=== PATIENT | male | born 1935 | race Caucasian/White ===

== ENCOUNTER 2016-11-30 15:13 | Inpatient (IN) | payer MEDICARE, OTHER ==
[~2016-11-30] VITALS: Ht 180.3 cm; Wt 93.7 kg
[~2016-11-30 15:13] MED LIST: ASPI-973 PO; CARV25TA2 PO; CREST10T PO; DOCU-41 PO; DOXY100T2 PO; FAMC500T18 PO; INSU100V7 SUBQ; LISI30TA5 PO; METF500T4 PO; NOV100I SUBQ; RUTI1TAB PO; SPIR25TA PO; UBID100C25 PO
[2016-11-30] MEDS ORDERED: [UNRECOGNIZED DRUG - OTHER] XX ONE (18:44)
[2016-11-30 19:17] LABS: APPEARANCE,URINE CLEAR (CLEAR,HAZY); COLOR,URINE YELLOW (YELLOW); OCCULT BLOOD,URINE NEGATIVE (NEGATIVE); PH,URINE 5.5 (5.0-8.0); UROBILINOGEN,URINE NORMAL (NORMAL)
[2016-11-30 19:23] VITALS: BP 154/73; PULSE 70; RESP 16; O2SAT 95
--- NOTE | 2016-11-30 19:29 | NUR ---
Admit: Patient arrived to [facility] at 1820. Pt A&O X3 and able to ambulate from stretcher to bed with SBA. Tele: AV paced 60's. Amiodarone gtt infusing at 1mg/min (33.3mL/hr). VSS. Report given to JEANMARIE MARSHALL.
[2016-11-30] MEDS ORDERED: Ondansetron 2 mg/mL 2 mL Inj IVPUSH PRN (19:45)
[2016-11-30] MEDS ORDERED: Alum-Mag Hydrox-Simeth 30 mL Suspension PO PRN (19:45)
[2016-11-30] MEDS ORDERED: Polyethylene Glycol (PEG) 17 Gm Powder PO PRN (19:45)
[2016-11-30 20:24] VITALS: BP 153/75; PULSE 64; RESP 20; O2SAT 93
[2016-11-30] MEDS ORDERED: Insulin Human NPH-Reg 70-30 100 Unit/mL 10 ML Mdv SUBQ SCH (20:25)
--- NOTE | 2016-11-30 20:33 | PCM.HPMED ---
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 His AICD discharged 4 times, each about 15 seconds apart around 12:45 PM while doing yard work. He stopped doing yardwork and defibrillator has not fired since. He notes only uncomfortability from the jolt of the AICD. The last time his AICD discharged was over a year ago. He was asymptomatic prior to it going off without any chest pain, palpitations, dizziness, headache, shortness of breath. He also denies fevers, chills, nausea, vomiting, abdominal pain, diarrhea. He does note he is scheduled for a cardiac ablation for ventricular tachycardia on 12/11/[address] Woodward. Per report from [facility], His AICD was interrogated by [facility] which showed total episodes of slow V. tach and multiple episodes of pacing which converted him however on his final occurrences rate went above 169 which required for defibrillation to between 30 and 36J for successful cardioversion. This was discussed with Dr. Kothari who recommended amiodarone drip and transfer to [facility]. Labs from [facility]: WBC 11.1, Hgb 14.7, HCT 45.3, platelets 200, Sodium 145, potassium 4.7, chloride 106, CO2 23, BUN 22, creatinine 1.3, glucose 185, calcium 9.5, magnesium 1.8, AST 29, ALT 48 , alkaline phosphatase 58, total CK 69, troponin I 0.012, , amylase 87, lipase 35, PT 10.9, INR 1.0, APTT 27. Chest X-ray with no acute pulmonary process. Rhythm strip from [facility] shows multiform PVCs with a pulse of 53. Urine dip without ketones, nitrites or leukocytes. Review of Systems: A comprehensive review of systems was conducted with the patient and found to be negative except as above in the History of Present Illness. Allergies Coded Allergies: amoxicillin (Verified Adverse Reaction, Intermediate, diarrhea, 01/29/15) Home Medications Per [facility] 06/10/2016 amiodarone 200 mg tablet 1 tab daily buttermaker helper. 03/16/2015 Aspir-81 81 mg tablet,delayed release take 1 tablet by oral route every day 03/16/2015 Crestor 10 mg tablet take 1 tablet by oral route every day 04/08/2016 furosemide 20 mg tablet take 1 tablet by oral route every day GLUCOSAMINE-CHONDROITIN 2 daily by mouth Lantus 100 unit/mL subcutaneous solution inject by subcutaneous route 25-40 units on sliding scale three times daily as per insulin protocol lisinopril 20 mg tablet take 2 tablet by oral route every day metformin 500 mg tablet take 2 tablets by oral route 2 times every day with morning and evening meals 09/08/2015 metoprolol succinate ER 50 mg tablet,extended release 24 hr take 1 tablet by oral route 2 times every day Novolog 100 unit/mL subcutaneous solution inject by subcutaneous route per prescriber's instructions. Insulin dosing requires individualization. Osteo Bi-Flex 250 mg-200 mg tablet take 2 tablets daily PMH Hemorrhagic pancreatitis with pseudocyst HTN DM 2/2 Partial pancreatectomy Animal wound infxn Splenectomy Cholecystectomy CAD s/p stent RCA SysCHF Surgical History Partial pancreatectomy Splenectomy Cholecystectomy CAD s/p stent RCA Family History Father- PNA (d.) Mother- Leukemia (d.) Siblings- 1 Unknown CA (d.); 2 A&W Social History Hx Alcohol Use: No Hx Substance Use: No Hx Tobacco Use: Yes Smoking Status: Former Smoker Exam Vital Signs Vital Signs (First) Date Time Temp Pulse Resp B/P Pulse Ox O2 Delivery O2 Flow Rate FiO2 11/30/16 19:23 36.8 70 16 154/73 95 Room Air Exam General: No acute distress, well-developed, well-nourished, appropriately interactive HEENT: Normocephalic, atraumatic. External ears without defect. Pupils equal, round. Anicteric sclerae, moist conjunctivae. Neck: Supple with full range of motion. No jugular venous distension. No bruits. No lymphadenopathy or thyromegaly. Cardiovascular: Regular rate and rhythm with no murmurs, rubs, or gallops appreciated Pulmonary: Clear to auscultation bilaterally with no crackles, wheezes, or rhonchi. Normal respiratory effort with no use of accessory muscles. Abdomen: Bowel tones present. Soft, nontender, nondistended. Extremities: No clubbing, cyanosis, edema, or lymphadenopathy appreciated. Skin: Normal temperature, turgor, and texture; no rash, ulcers, or subcutaneous nodules appreciated. Neurological: Cranial nerves grossly intact. Normal muscle strength, tone, and bulk. Reflexes, coordination, and sensory function within normal limits. No known gait impairment. Psychiatric: Normal mood and affect. Alert and oriented to person, place, and time. Lab and Diagnostics Labs Labs from [facility]: WBC 11.1, Hgb 14.7, HCT 45.3, platelets 200, Sodium 145, potassium 4.7, chloride 106, CO2 23, BUN 22, creatinine 1.3, glucose 185, calcium 9.5, magnesium 1.8, AST 29, ALT 48, alkaline phosphatase 58, total CK 69 , troponin I 0.012, , amylase 87, lipase 35, PT 10.9, INR 1.0, APTT 27. X-Rays, CTs and MRIs Chest x-ray from [facility] 11/30/16: No acute pulmonary process. 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 Interrogation, this occured, secondary to ventricular tachycardia with HR 169. Patient had AICD placed in 2014 for sustained ventricular tachycardia. Per last cardiology report in [facility] in October, he has had 62 episodes of ventricular tachycardia in about 1 month. He was originally scheduled for cardiac ablation on 12/11/[address] Woodward. - Amiodarone drip per Dr. Kothari, Cardiology will see tomorrow - Trop WNL at [facility]. Will repeat - Monitor on Tele - CBC, CMP in AM - TSH, Magnesium, troponin now - NPO after midnight Diabetes Mellitus, insulin dependent, s/p partial pancreatectomy, Present on Admission, Active Last A1c 6.9 per patient, 1.5 weeks ago. Typical regimen is Lantus 25 mg BID, Novolog sliding scale with meals and metformin. Insulin and metformin used to control. Please work with pt, as he has a tailored regimen for his unique situation of partial pancreatectomy. - Novolog High dose scale TID with meals - Lantus 20 units BID, Will given 10 units tonight as patient NPO after midnight - Hold Metformin - Low dose lispro sliding scale Hypertension, present on admission, active - Continue home Metoprolol Succinate 50 mg BID - Continue home Furosemide 20 mg qAM Hyperlipidemia, managed. - Continue Crestor 10 mg daily CAD s/p stent, 2000. - Continue home metoprolol, aspirin Acetaminophen for mild pain when necessary. Bowel regimen Senna and MiraLAX scheduled and PRN. Zofran when necessary for nausea and vomiting. SubQ heparin, SCDs in place. CODE Status: Full Code Patient Status: Patient is admitted under observation status with expected length of stay less than 2 midnights due to severity of presenting symptoms, risk of adverse event, and complexity of treatment plan. VTE Prophylaxis: Sub-Q Heparin (Unfractionated) VTE Mechanical Devices: Intermittant Pneumatic CD Resuscitation Status: CPR: Attempt Resuscitation Attending Statement The patient was seen and examined together with Dr. Escalante on 11/30 and I agree with the history, exam and plan as outlined in the note above. Sahil Escalante DO Nov 30, 2016 19:12 Sahil Wei MD Dec 01, 2016 02:37
[2016-11-30 21:24] VITALS: BP 136/82; PULSE 60; RESP 24; O2SAT 92
[2016-11-30] MEDS ORDERED: Glucose 40% Oral Gel 15 Gm Tube PO PRN (21:25)
[2016-11-30] MEDS: MeTOProlol XL 50 mg ER24 Tablet PO SCH (21:25)
[2016-11-30] MEDS: Amiodarone 360 mg/200 mL D5W 360 MG, Filter, Taxol 14256-28 1 EACH in IV Premix 1 EACH IV SCH (21:42)
[2016-11-30] MEDS: Insulin LISPRO 300 Unit/3 mL Inj SUBQ SCH (22:00)
[2016-11-30] MEDS ORDERED: Insulin GLARgine 100 Unit/mL Syringe SUBQ ONE (22:00)
[2016-11-30 22:35] LABS: TROPONIN T 0.01 ug/L (0.0-0.011)
[2016-11-30 22:45] LABS: Magnesium 1.8 mg/dL (1.6-2.6)
[2016-11-30 23:09] VITALS: BP 136/70; PULSE 67; RESP 21; O2SAT 93
[2016-11-30] MEDS: Heparin 5,000 Unit/mL Inj SUBQ SCH (23:55)
[2016-12-01] VITALS (10 sets, daily range): BP systolic 125–143; BP diastolic 63–85; PULSE 60–71; RESP 19–25; O2SAT 92–97
[2016-12-01] MEDS ORDERED: Amiodarone 360 mg/200 mL D5W Premix IV ONE ×2 (02:24→15:19)
[2016-12-01] MEDS ORDERED: IV Premix 1 EACH IV ONE ×2 (02:24→15:19)
[2016-12-01] MEDS: Amiodarone 360 mg/200 mL D5W 360 MG, Filter, Taxol 14256-28 1 EACH in IV Premix 1 EACH IV SCH ×2 (02:30→15:28)
[2016-12-01 03:54] LABS: BASOPHILS % (AUTO) 0.2 % (0-3); EOSINOPHILS % (AUTO) 2.2 % (0-5); MONOCYTES % (AUTO) 12.5 % (4-12); Mean Corpuscular Hemoglobin 30.4 pg (27.0-35.0); Mean Corpuscular Volume 94.2 fL (81-100); NEUTROPHILS % (AUTO) 64.1 % (40-74); Platelet Count 207 bil/L (150-400)
--- NOTE | 2016-12-01 05:54 | NUR ---
Cardiac Frequent PVCs but no runs of Vtach and no defibrillator shocks overnight. Amiodarone infusion continues at 0.5mg/min. Patient slept intermittently, slept in room. BGs 88, 127, 118 overnight, no insulin coverage. Plan for cardiology consult today.
[2016-12-01] MEDS: Insulin LISPRO 300 Unit/3 mL Inj SUBQ SCH ×4 (08:00→21:03)
[2016-12-01] MEDS: Insulin GLARgine 100 Unit/mL Syringe SUBQ SCH ×2 (08:30→21:03)
[2016-12-01] MEDS: Heparin 5,000 Unit/mL Inj SUBQ SCH ×2 (08:59→18:02)
[2016-12-01] MEDS: MeTOProlol XL 50 mg ER24 Tablet PO SCH ×2 (08:59→21:04)
--- NOTE | 2016-12-01 11:22 | PCM.PNMED ---
Subjective Date of Service Dec 01, 2016 Subjective Today that patient states that he feels well, he has not had any discharge of his AICD since admission, and he denies chest pain, palpitations, nausea, vomiting, or diarrhea. No significant overnight events. Exam Vital Signs Vital Sign - Last Date Time Temp Pulse Resp B/P Pulse Ox O2 Delivery O2 Flow Rate FiO2 12/01/16 08:48 36.7 67 21 139/75 93 Room Air Intake and Output 11/30/16 11/30/16 12/01/16 Cumulative From/Thru 14:59 22:59 06:59 11/30/16 19:23 - 12/01/16 06:43 Intake Total 307 ml 307 ml Balance 307 ml 307 ml IV Total 307 ml 307 ml Exam Gen: A/O x3 pleasant cooperative man in NAD Neck: Supple, non tender, no JVD HEENT: PERRL, EOMI, no scleral icterus CV: RRR, no murmurs rubs or gallops, no tenderness to pacer site Resp: Lungs CTA BL no wheezing rales or rhonchi Abd: Soft, non tender, no rebound masses or guarding Extr: No clubbing cyanosis or edema Neuro: CN 2-12 grossly intact, no focal neurologic deficit Psych: Pleasant and appropriate mood and affect. IVs and Medications Medications Reviewed: Medications were reviewed in detail Lab and Diagnostics Item Value Date Time Red Blood Count 4.47 mil/mm3 12/01/16334 Mean Corpuscular Volume 94.2 fL 12/01/16334 Mean Corpuscular Hemoglobin 30.4 pg 12/01/16334 Mean Corpuscular Hemoglobin Concent 32.3 % 12/01/16334 Red Cell Distribution Width 16.6 % H 12/01/16 033 Neutrophils (%) (Auto) 64.1 % 12/01/16 033 Lymphocytes (%) (Auto) 20.7 % 12/01/16 033 Monocytes (%) (Auto) 12.5 % H 12/01/16334 Eosinophils (%) (Auto) 2.2 % 12/01/16334 Basophils (%) (Auto) 0.2 % 12/01/16334 Estimat Glomerular Filtration Rate 72 mL/min 12/01/16334 Calcium Level 9.0 mg/dL 12/01/16334 Total Bilirubin 0.3 mg/dL 12/01/16 033 Aspartate Amino Transf (AST/SGOT) 18 U/L 12/01/16 033 Alanine Aminotransferase (ALT/SGPT) 22 U/L 12/01/16 033 Alkaline Phosphatase 53 U/L 12/01/16 033 Total Protein 6.4 g/dL 12/01/16 033 Albumin 3.8 g/dL 12/01/16334 Triglycerides Level 68 mg/dL 12/01/16334 Cholesterol Level 130 mg/dL 12/01/16334 LDL Cholesterol, Calculated 57.400 mg/dL 12/01/16334 VLDL Cholesterol 13.600 mg/dL 12/01/16334 HDL Cholesterol 59 mg/dL 12/01/16334 Cholesterol/HDL Ratio 2.20 12/01/16334 Result Diagram: 12/01/1633412/01/16334 X-Rays, CTs and MRIs Chest x-ray from [facility] 11/30/16: No acute pulmonary process. 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 Interrogation, this occurred, secondary to ventricular tachycardia with HR 169. Patient had AICD placed in 2014 for sustained ventricular tachycardia. Per last cardiology report in [facility] in October, he has had 62 episodes of ventricular tachycardia in about 1 month. He was originally scheduled for cardiac ablation on 12/11/[address] Woodward. - Amiodarone drip per Dr. Kothari - Trop WNL at [facility]. Repeat unremarkable - Monitor on Tele - CBC, CMP in AM - Heart Healthy diet - Will maintain on Amiodarone drip until tomorrow, will have the patient evaluated by Dr. Woodward at that time Diabetes Mellitus, insulin dependent, s/p partial pancreatectomy, Present on Admission, Active Last A1c 6.9 per patient, 1.5 weeks ago. Typical regimen is Lantus 25 mg BID, Novolog sliding scale with meals and metformin. Insulin and metformin used to control. Please work with pt, as he has a tailored regimen for his unique situation of partial pancreatectomy. - Novolog High dose scale TID with meals - Lantus 20 units BID, Will given 10 units tonight as patient NPO after midnight - Hold Metformin - Low dose lispro sliding scale Hypertension, present on admission, active - Continue home Metoprolol Succinate 50 mg BID - Continue home Furosemide 20 mg qAM Hyperlipidemia, managed. - Continue Crestor 10 mg daily CAD s/p stent, 2000. - Continue home metoprolol, aspirin Disposition: Patient will undergo evaluation for Vtach by Dr. Woodward tomorrow, cardiology will dictate course of care and likely date of discharge; most likely 2-3 days. Pain Evaluation: Adequate Pain Control VTE Prophylaxis: Sub-Q Heparin (Unfractionated) VTE Mechanical Devices: Intermittant Pneumatic CD Resuscitation Status: CPR: Attempt Resuscitation Attending Statement The patient was seen and examined together with Dr. Perez on 12/01/16 and I agree with the history, exam and plan as outlined in the note above. Karri Perez DO Dec 01, 2016 11:22 Toy Barba Dec 01, 2016 16:40
--- NOTE | 2016-12-01 11:41 | CONS ---
[address] [address] CONSULTATION REPORT PATIENT: DARLENE LIRIANO : 1935 MR#: [id number] ADMIT: 11/30/2016 JOB ID: [id number] DATE OF SERVICE: 12/01/2016 HISTORY OF PRESENT ILLNESS: I have been asked by the hospitalist to see the patient for assistance and management and evaluation of recurrent VT and ICD shocks. The patient was doing some yardwork early yesterday afternoon when he experienced four serial ICD discharges. He stopped his yardwork and presented to the emergency department at [facility] for evaluation. ICD interrogation at that time showed episode of monomorphic VT with failure to pace terminate and subsequent serial ICD shocks with subsequent establishment of normal sinus rhythm. He was unaware of any symptoms of palpitations, dyspnea, lightheadedness, or any anginal chest discomfort at that time. This gentleman has a long history of recurrent ventricular tachycardia related to previous inferior myocardial infarction and over the past couple of years has had recurrent nonsustained monomorphic VT and recurrent pace terminated VT. He was started up on amiodarone therapy in October of last year having received several shocks for rapid monomorphic VT and subsequently his ventricular tachycardia heart rate has been markedly reduced into the 120-130 range. This is compared with 200 to 230 beats per minute prior to amiodarone. Though the frequency of his ventricular tachycardia appears to be gradually increasing particularly over the past three months or so. He has been followed in our office recently by Dr. Woodward who has him scheduled for a ventricular tachycardia ablation procedure in about 10 days. The patient's cardiac history dates back to an inferior myocardial infarction in 2000 initially treated with thrombolytic therapy followed 24 hours later by angiography and angioplasty and stenting to an occluded mid-RCA. He has done well since that time without recurrent anginal symptoms or evidence of symptomatic pulmonary congestion related to chronic moderate left ventricular systolic dysfunction. He presented with rapid monomorphic ventricular tachycardia in January 2015. Coronary angiography was performed at that time demonstrating patent stent to the mid RCA. He did have evidence of severe tubular disease involving the distal RCA before the PDA in addition to moderate disease involving the LAD, the left circumflex, and mild distal left main stenosis. He was not felt to have symptomatic ischemic heart disease and therefore underwent ICD placement with a dual-chamber device. Again following his presentation with ICD shocks in October 2015 he has been treated with amiodarone. Over that period of time he has developed fairly prominent gait imbalance likely related to or contributed to by his amiodarone therapy. In addition to being aware of progressively severe symptomatic exertional dyspnea over the past six months without anginal symptoms. He denies any nocturnal pulmonary congestion. He has had no episodes of syncope. PAST MEDICAL HISTORY: Otherwise remarkable for presentation with hemorrhagic pancreatitis in 2003 leading to subtotal pancreatectomy with secondary diabetes ever since. He underwent diagnostic coronary angiography at that time, due to evidence of significant ventricular dysfunction without significant findings and his ventricular dysfunction improved as his symptomatic acute pancreatitis gradually resolved. He has a history of chronic hypertension in addition. OUTPATIENT MEDICATIONS: Prior to admission included: 1. Amiodarone 200 mg daily. 2. Aspirin 81 mg daily. 3. Crestor 10 mg daily. 4. Furosemide 20 mg daily. 5. Lisinopril 40 mg daily. 6. Metoprolol succinate 50 mg twice daily. In addition to his current diabetic medications. ALLERGIES: AMOXICILLIN. REVIEW OF SYSTEMS: Otherwise unremarkable with the exception of his gait imbalance and absence of angina or nocturnal pulmonary congestion. He denies cough or sputum production or wheezing. PHYSICAL EXAMINATION: A very pleasant 80-year-old gentleman who is 5 feet 11 inches, and 210 pounds with a body mass index of 29. Blood pressures have been mild to moderately elevated ranging from 125-150 systolic. Heart rates in the 60-70 range with predominantly atrial pacing. O2 room air saturation 93%. He has been afebrile. HEENT examination is unremarkable. Jugular venous pressure is moderately increased with prominent A-waves in his jugular venous pulse, which is visible just below the angle of the jaw with the patient at 45 degrees. Lung armstrong are clear without rales or wheezes or rhonchi. Cardiac auscultation reveals a regular rate, a single S2, and a soft murmur of mitral insufficiency at the apex. Abdomen is soft and nontender, no palpable organomegaly, somewhat protuberant. Distal extremities are warm and well perfused. Distal pedal pulses are faintly palpable. No significant lower extremity edema. No other significant exam findings noted. LABORATORY DATA: Notable for normal electrolytes. Blood sugars well controlled. Troponin level is negative. Lipid profile was excellent. His thyroid function is normal. Chest x-ray shows moderate cardiomegaly with clear lung armstrong. IMPRESSION: 1. Recurrent monomorphic ventricular tachycardia with implantable cardioverter defibrillator discharges: This patient has stabilized on intravenous amiodarone for the time being. Given his history of progressive exertional dyspnea I am going to repeat an echocardiogram today to evaluate global left ventricular function and his mitral insufficiency. Ultimately I think repeat coronary angiography is likely going to be necessary and probably should be conducted on this admission prior to his ablation procedure in case there is an obvious ischemic trigger. I would be tempted to go ahead and proceed with angioplasty and stenting to the distal right coronary artery if there is any suspicion that ischemia in addition to scar contributes to his recurrent monomorphic ventricular tachycardia. 2. Remote inferior myocardial infarction with mild to moderate left ventricular systolic dysfunction. Ejection fraction on his most recent echocardiogram 40% with obvious inferior scar. 3. Chronic moderate mitral regurgitation. 4. Progressive exertional dyspnea. Etiology yet to be determined. Unlikely to be related to amiodarone pulmonary toxicity and possibility includes progressive ventricular dysfunction or progressive myocardial ischemia. 5. Hypertension somewhat suboptimally controlled. 6. History of diabetes secondary to a subtotal pancreatectomy well controlled. I appreciate the opportunity of seeing the patient. I will ask my associate to follow up tomorrow and will ask Dr. Woodward to see the patient in consultation tomorrow as well for his advice and input.
--- NOTE | 2016-12-01 12:34 | NUR ---
Social Work: Assessment D&A: Please see initial assessment. DYNAMOMETER MECHANIC reviewed EMR, which states pt is at [facility] with Yimi tolentino. Pt's primary insurance is Medicare, with a [employer] supp. Pt's PCP is Sergio Colon MD. Pt's readmit score has not yet been assessed. DYNAMOMETER MECHANIC met with pt at pt's bedside and explained DYNAMOMETER MECHANIC role. Pt reports that he lives at home with his ; the home is one level and there are three external steps. Pt's Anu Hopper is his designated medicare contact specialist and DPOA; SW encouraged pt to bring PPW confirming the latter designation as well as copies of his advanced directive to [facility] for scanning. Pt reports that he boss sot use any equipment to ambulate. at baseline, he drives his own car. Pt does not endorse a hx of SNF admission or H.H. Pt does not utilize any community services, nor does he have a employment case manager. Pt does not anticipate any SW needs at d/c. P: Pt likely to d/c home with no needs via POV; DYNAMOMETER MECHANIC team will continue to follow. PHANI Lino Addendum: 12/01/16 at 1240 by ALBA MENDENHALL Amended: Links added.
[2016-12-01] MEDS ORDERED: Dextrose 10% 250 ML IV PRN (14:05)
--- NOTE | 2016-12-01 16:18 | DRSVH ---
[facility] [address] [place] [address] Echocardiogram Report Name: DARLEEN LIRIANO Study Date: 12/01/2016 Height: 71 in Hospital Exam Location: [facility] Weight: 209 lb Gender: Male BSA: 2.1 m2 : 1935 Age: 80 yrs BP: 125/63 mmHg Reason For Study: VTACH ON AICD Ordering Physician: Floridalma HospitalistPerformed By: Pierce Amador Referring Physician: Dr. Sergio Colon Interpretation Summary The left ventricle is mildly dilated. The ejection fraction is estimated to be 40-45%. There is akinesis and thinning of the basel 2/3rds of the inferior and posterior palacio and general hypokinesis otherwise. There is moderate mitral regurgitation. The right ventricular systolic pressure is estimated at 64 mmHg assuming a right atrial pressure of 15 mm Hg. The IVC is dilated (diameter is greater than 2.1 cm) and it collapses less than 50% with a sniff. This suggests a high right atrial pressure of 15 mm Hg. No other echocardiographic abnormalities seen. Compared with the prior exam from 12/29/2015, the LV function appears slightly weaker. I would have estimated the prior EF at 45-50 and the current EF at 40-45%. Compared with the prior exam, the MR appears slightly worse. Procedure: A two-dimensional transthoracic echocardiogram with color flow and Doppler was performed. The study quality was technically adequate. Comparison is made with the echocardiogram of 12/29/15. The patient has a paced rhythm. Left Ventricle: There is normal left ventricular wall thickness. The left ventricle is mildly dilated. The ejection fraction is estimated to be 40-45%. There is akinesis and thinning of the basel 2/3rds of the inferior and posterior palacio and general hypokinesis otherwise. Right Ventricle: There is a pacemaker lead in the right ventricle. The right ventricle is normal in size and function. Atria: Both atria are moderately dilated. The interatrial septum is intact with no evidence for an atrial septal defect. Mitral Valve: There is mild mitral annular calcification. The mitral valve leaflets are slightly calcified. There is moderate mitral regurgitation. Flow reversal noted in pulmonary veins consistent with significant mitral regurgitation. Aortic Valve: The aortic valve is trileaflet. The aortic valve opens well. There is trace aortic regurgitation. Tricuspid Valve: The tricuspid valve is normal in structure and function. There is mild tricuspid regurgitation. The right ventricular systolic pressure is estimated at 64 mmHg assuming a right atrial pressure of 15 mm Hg. Pulmonic Valve: The pulmonic valve is normal in structure and function. There is trace pulmonic regurgitation. Great Vessels: The aortic root is normal size. The dimensions of the ascending aorta are normal. The pulmonary artery is normal size. The IVC is dilated (diameter is greater than 2.1 cm) and it collapses less than 50% with a sniff. This suggests a high right atrial pressure of 15 mm Hg. Pericardium/ Pleura There is no pericardial effusion. There is no pleural effusion. MMode/2D Measurements & Calculations LVIDd: 5.9 cm LA dimension: 4.8 cm LVIDs: 5.1 cm FS: 14.3 % LA A2 area: 29.5 cm EPSS: 1.6 cm LA A4 area: 29.2 cm IVSd: 1.1 cm LA length (vol): 6.9 cm LVPWd: 0.81 cm LA vol: 106.0 ml LA vol index: 49.3 ml/m IVC diam: 2.5 cm RA long axis: 6.2 cm Ao root diam: 2.8 cm RA area: 30.9 cm Aortic Jxn: 2.4 cm RA vol: 130.4 ml asc Aorta Diam: 3.4 cm RA : 60.7 ml/m2 EDV(MOD-sp2): 198.6 ml LV boateng. diameter/BSA (cm/m^2): 2.7 ESV(MOD-sp2): 144.6 ml EF(MOD-sp2): 27.2 % LV sys. diameter/BSA (cm/m^2): 2.4 RVD1 (basal): 4.5 cm RVD2 (mid): 3.6 cm Doppler Measurements & Calculations Ao V2 max: 128.1 cm/sec MV E max thiago: 94.7 cm/sec Ao max P.6 mmHg MV A max thiago: 38.5 cm/sec Ao mean P.1 mmHg MR ERO: 0.35 cm2 MV E/A: 2.5 TR max thiago: 351.5 cm/sec Med Peak E' Thiago: 5.9 cm/sec TR max P.4 mmHg E/E' med: 16.0 PA V2 max: 81.1 cm/sec PA mean P.3 mmHg PA Accel Time: 0.08 sec MV dec time: 0.14 sec Ao V2 mean: 99.0 cm/sec Ao V2 VTI: 27.5 cm PA V2 mean: 54.6 cm/sec MR flow rate: 188.7 cm3/sec PA pr(Accel): 48.2 mmHg MR PISA radius: 0.81 cm Reading Physician:04:18 PM
--- NOTE | 2016-12-01 16:52 | NUR ---
Cardiology 939 - Discussed his care with Dr. Barba, Dr. Perez, and the rest of the multidisciplinary care team during morning rounds. Asked if he still needed to be on an NPO diet. They said that Cardiology would need to determine that after their consultation. Also, informed them that his family was supposed to bring in an updated medication list today to complete his medication req. and that his home medications needed to be ordered. They said Cardiology would also need to determine which medications he needs to take while here. 944 - Spoke to Dr. Kothari about his diet after he saw the patient. Dr. Kothari said he could eat now and would be seen by Dr. Woodward tomorrow. 1614 - Clarified with Dr. Kothari if he wanted the patient to continue his Amiodarone drip as the 24 hours would be complete at about 2100. He gave verbal orders to discontinue the drip then and order 200 mg of Amiodarone by mouth daily starting tomorrow AM. These written orders were scanned to the pharmacy. Also, informed him that the hospitalists had said to leave his home medications up to cardiology. No new orders concerning his home medications were given at this time. 1708 - Asked him if his family had brought in an updated medication list. He said that he had talked to his daughter who told him what his medications were. Went through his medication req. with him and updated it. Care continues. Addendum: 12/01/16 at 1741 by ANNEL ADDISON RN Correction: 939 - Dr. Barba and Dr. Perez did not say his home medication req. would be up to Cardiology. Different patient. Care continues.
[2016-12-01] MEDS ORDERED: FUR20 PO (17:07)
[2016-12-01] MEDS ORDERED: LISI40TA PO (17:07)
[2016-12-02] MEDS: Heparin 5,000 Unit/mL Inj SUBQ SCH ×3 (00:25→16:43)
[2016-12-02 03:06] LABS: Mean Corpuscular Hemoglobin 30.6 pg (27.0-35.0); Mean Corpuscular Volume 94.1 fL (81-100); Platelet Count 194 bil/L (150-400)
[2016-12-02 03:14] VITALS: BP 152/87; PULSE 79; RESP 25; O2SAT 91
--- NOTE | 2016-12-02 03:17 | NUR ---
Cardiac Pt on amio gtt @ 0.5 mg/min, tele 100% apaced, amio gtt turned off @ [address] Koth[address]. Pt remain Apaced. VSS. Assumed care from [id number]. Pt report given to Sara Pandey RN
[2016-12-02 03:24] LABS: BASOPHILS % (AUTO) 0 % (0-3); EOSINOPHILS % (AUTO) 4 % (0-5); MONOCYTES % (AUTO) 9 % (4-12); NEUTROPHILS % (AUTO) 76 % (40-74)
[2016-12-02 04:23] LABS: Magnesium 1.9 mg/dL (1.6-2.6); Phosphorus 3.3 mg/dL (2.5-4.9)
[2016-12-02] MEDS: MeTOProlol XL 50 mg ER24 Tablet PO SCH ×2 (08:02→20:05)
[2016-12-02] MEDS: Insulin GLARgine 100 Unit/mL Syringe SUBQ SCH ×2 (08:02→20:11)
[2016-12-02 08:30] VITALS: BP 120/80; PULSE 70; RESP 16; O2SAT 93
[2016-12-02] MEDS: Insulin LISPRO 300 Unit/3 mL Inj SUBQ SCH ×4 (09:06→20:11)
[2016-12-02 10:12] VITALS: PULSE 60
[2016-12-02 12:12] VITALS: BP 117/72; PULSE 60; RESP 22; O2SAT 92
[2016-12-02] MEDS ORDERED: Furosemide 10 mg/mL 4 mL Inj IVPUSH ONE (13:25)
--- NOTE | 2016-12-02 13:41 | PCM.PNMED ---
Subjective Date of Service Dec 02, 2016 Subjective The patient states that he is feeling relatively well all things considered. He complains of some back pain secondary to stiffness and lying around in a hospital bed. He denies chest pain, palpitations, increased SOB, or new discharge of his ICD. Overnight the patient did not have any acute events or device discharges. Exam Vital Signs Vital Sign - Last Date Time Temp Pulse Resp B/P Pulse Ox O2 Delivery O2 Flow Rate FiO2 12/02/16 12:12 37.0 60 22 117/72 92 Room Air Intake and Output 12/01/16 12/01/16 12/02/16 Cumulative From/Thru 15:00 23:00 07:00 11/30/16 19:23 - 12/02/16 06:15 Intake Total 240 ml 1390 ml 100 ml 2037 ml Output Total 625 ml 825 ml 675 ml 2125 ml Balance -385 ml 565 ml -575 ml -88 ml Intake Oral 240 ml 1190 ml 100 ml 1530 ml IV Total 200 ml 507 ml Output Urine Total 625 ml 825 ml 675 ml 2125 ml Exam Gen: A/O x3 pleasant cooperative man in NAD Neck: Supple, non tender, JVD of 6-7 cm HEENT: PERRL, EOMI, no scleral icterus CV: RRR, no murmurs rubs or gallops, no tenderness to pacer site Resp: Lungs CTA BL no wheezing rales or rhonchi Abd: Soft, non tender, no rebound masses or guarding Extr: No clubbing cyanosis or edema Neuro: CN 2-12 grossly intact, no focal neurologic deficit Psych: Pleasant and appropriate mood and affect. IVs and Medications Medications Reviewed: Medications were reviewed in detail Lab and Diagnostics Item Value Date Time Red Blood Count 4.58 mil/mm3 12/02/16 025 Mean Corpuscular Volume 94.1 fL 12/02/16 025 Mean Corpuscular Hemoglobin 30.6 pg 12/02/16 025 Mean Corpuscular Hemoglobin Concent 32.5 % 12/02/16 025 Red Cell Distribution Width 16.3 % H 12/02/16 0255 Neutrophils (%) (Auto) 76 % H 12/02/16 0255 Lymphocytes (%) (Auto) 20 % 12/02/16 0255 Monocytes (%) (Auto) 9 % 12/02/16254 Eosinophils (%) (Auto) 4 % 12/02/16254 Basophils (%) (Auto) 0 % 12/02/16254 Band Neutrophils % 3 % 12/02/16254 Estimat Glomerular Filtration Rate 72 mL/min 12/02/16254 Calcium Level 9.0 mg/dL 12/02/16254 Phosphorus Level 3.3 mg/dL 12/02/16254 Magnesium Level 1.9 mg/dL 12/02/16254 Total Bilirubin 0.4 mg/dL 12/02/16254 Aspartate Amino Transf (AST/SGOT) 19 U/L 12/02/16254 Alanine Aminotransferase (ALT/SGPT) 20 U/L 12/02/16254 Alkaline Phosphatase 60 U/L 12/02/16254 Troponin T 0.010 ug/L 12/02/16254 Total Protein 6.2 g/dL L 12/02/16254 Albumin 4.0 g/dL 12/02/16254 Result Diagram: 12/02/1625412/02/16254 X-Rays, CTs and MRIs Chest x-ray from [facility] 11/30/16: No acute pulmonary process. Cardiac Echo Impressions Interpretation Summary The left ventricle is mildly dilated. The ejection fraction is estimated to be 40-45%. There is akinesis and thinning of the basel 2/3rds of the inferior and posterior palacio and general hypokinesis otherwise. There is moderate mitral regurgitation. The right ventricular systolic pressure is estimated at 64 mmHg assuming a right atrial pressure of 15 mm Hg. The IVC is dilated (diameter is greater than 2.1 cm) and it collapses less than 50% with a sniff. This suggests a high right atrial pressure of 15 mm Hg. No other echocardiographic abnormalities seen. Compared with the prior exam from 12/29/2015, the LV function appears slightly weaker. I would have estimated the prior EF at 45-50 and the current EF at 40-45%. Compared with the prior exam, the MR appears slightly worse. Reading Physician:04:18 PM . 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 Per discussion with cardiology that patient will transitioned off his Amiodarone drip, have his device re- programmed to reduce threshold of activation, and undergo a pharmacological stress test tomorrow AM. 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, this occurred, secondary to ventricular tachycardia with HR 169. Patient had AICD placed in 2014 for sustained ventricular tachycardia. Per last cardiology report in [facility] in October, he has had 62 episodes of ventricular tachycardia in about 1 month. He was originally scheduled for cardiac ablation on 12/11/[address] Woodward. - Amiodarone drip per Dr. Kothari - [facility] at [facility]. Repeat unremarkable - Monitor on Tele - CBC, CMP in AM - Heart Healthy diet - Per discussion with cardiology that patient will transitioned off his Amiodarone drip to PO, have his device re-programmed to reduce threshold of activation, and undergo a pharmacological stress test tomorrow AM. Diabetes Mellitus, insulin dependent, s/p partial pancreatectomy, Present on Admission, Active Last A1c 6.9 per patient, 1.5 weeks ago. Typical regimen is Lantus 25 mg BID, Novolog sliding scale with meals and metformin. Insulin and metformin used to control. Please work with pt, as he has a tailored regimen for his unique situation of partial pancreatectomy. - Novolog High dose scale TID with meals - Lantus 20 units BID, Will given 10 units tonight as patient NPO after midnight - Hold Metformin - Low dose lispro sliding scale Hypertension, present on admission, active - Continue home Metoprolol Succinate 50 mg BID - Continue home Furosemide 20 mg qAM Hyperlipidemia, managed. - Continue Crestor 10 mg daily CAD s/p stent, 2000. - Continue home metoprolol, aspirin Disposition: Patient will undergo stress test tomorrow AM following reprograming of his device, anticipate 1-2 day until DC with needs to be determined. Pain Evaluation: Adequate Pain Control VTE Prophylaxis: Sub-Q Heparin (Unfractionated) VTE Mechanical Devices: Intermittant Pneumatic CD Resuscitation Status: CPR: Attempt Resuscitation Attending Statement The patient was seen and examined together with Dr. Perez on 9/25/17 and I agree with the history, exam and plan as outlined in the note above. Karri Perez DO Dec 02, 2016 13:41 Toy Barba Dec 02, 2016 17:45
--- NOTE | 2016-12-02 14:37 | PROG NOTE ---
[address] [address] PROGRESS NOTE PATIENT: DARLEEN LIRIANO : 1935 MR#: [id number] ADMIT: 11/30/2016 JOB ID: [id number] DATE: 12/02/2016 The patient is a 80-year-old male with known ischemic heart disease, status post inferior myocardial infarction with subsequent development of monomorphic VT for which he has had an ICD placed and has been treated with amiodarone therapy because of recurrent slow ventricular tachycardia and has been scheduled for an ablation procedure on December 11, 2016. He was admitted with recurrent ICD shocks, the 1st of which appeared to be appropriate after failure of anti-tachy pacing but then two subsequent shocks that appeared to be nonappropriate. He has been started on IV amiodarone and with this has had suppression of any further ventricular ectopy. Dr. Kothari has contacted Dr. Woodward and a plan made for his device to be interrogated and potentially reprogrammed by the [facility] telesales representative and to transition him back to oral amiodarone with a myocardial perfusion study to rule out significant ischemia. If his sestamibi study is benign, then he can be discharged to follow up with his ablation procedure as previously scheduled. This morning, he feels about the same as yesterday. He complains of slightly progressive exertional dyspnea ever since being put on amiodarone but denies any resting dyspnea or orthopnea. He has had no chest discomfort and has not had any sense of any palpitations. He denies any lower extremity edema or weight gain. PHYSICAL EXAMINATION: A pleasant elderly male in no distress. HR 60, BP 117/72. O2 saturation 92% on room air. He has had a fairly neutral fluid balance and his weight remains unchanged. Lungs: Slight crackles throughout. JVP is likely 6-7 cm. Regular rate and rhythm without any appreciable murmurs or gallops. Abdomen: Moderately obese but nondistended, nontender. Extremities: Trace bilateral pitting edema. LABORATORY: Potassium this morning was 4.9, with a magnesium level of 1.9. BUN is 19, with a creatinine of 1.1, unchanged from admission. Glucose was 210. Troponins remain negligible. TSH was normal at 1.7. His echocardiogram from yesterday showed an ejection fraction about 40% to 45%, with scar in the proximal two-thirds of the inferoposterior segments, unchanged from previous, with moderate mitral regurgitation and significant pulmonary hypertension with a PA pressure 64 with a CVP of 18. IMPRESSION: 1. Recurrent monomorphic ventricular tachycardia. This now appears to have stabilized with IV amiodarone. His device is being reassessed to see if there is any optimization that can be performed. I suspect that his exertional dyspnea and pulmonary hypertension are likely a reflection of some modest pulmonary congestion and I will give him 40 mg of IV furosemide today and increase his home furosemide from 20-40 mg. If his myocardial perfusion study from tomorrow shows no concerning ischemia, then the plan has been developed to allow him to be discharged with followup with Dr. Woodward for his previously scheduled ablation procedure. It will be important to continue to track his electrolytes, particularly with increased diuresis, and he should have a repeat BMP done one week after increasing his furosemide. 2. Coronary artery disease, status post inferior myocardial infarction. As above. No anginal symptoms but will assess with a pharmacologic stress test. 3. Chronic moderate mitral regurgitation. Hopefully, diuresis will improve this. 4. Hypertension. Now appears better controlled. 5. Diabetes. Per the hospitalist. PLAN: 1. Stop his IV amiodarone drip and increase his oral amiodarone from 200 to 400 mg daily. 2. Give him 40 mg of IV Lasix today and increase his home furosemide from 20 to 40 mg daily with a BMP in around one week. 3. Continue to monitor heart rate and rhythm. Anticipate discharge with VT ablation procedure by Dr. Woodward on December 11. 4. Continue to track electrolytes and renal function closely. Myocardial perfusion study tomorrow. If benign, then I suspect that he can be discharged. I spent 44 minutes reviewing the patient's medical record and his images, examining and interviewing the patient, and answering his questions.
--- NOTE | 2016-12-02 15:52 | NUR ---
Respiratory/stress test jr C/O SOB in the AM. Slight crackles heard throughout lungs. One time Lasix given IVP. Pt has voided around 5 times since administration. Educated on using urinal rather than toilet but pt is at times forgetful. Trace edema to bilateral extremities. Pt and aware of cardiac stress test tomorrow, no caffeine, and NPO after midnight.
[2016-12-02 19:56] VITALS: BP 139/76; PULSE 61; RESP 16; O2SAT 95
[2016-12-02 20:00] VITALS: PULSE 60
[2016-12-03] VITALS (9 sets, daily range): BP systolic 120–154; BP diastolic 64–79; PULSE 59–77; RESP 16–20; O2SAT 92–96
[2016-12-03] MEDS: Heparin 5,000 Unit/mL Inj SUBQ SCH ×3 (00:59→17:20)
--- NOTE | 2016-12-03 04:39 | NUR ---
Tele Tele continues to be a paced in 70's. Denies chest pain or dizziness. Up in room with standby assistance. Has been NPO since midnight awaiting stress test this AM.
[2016-12-03 05:45] LABS: BASOPHILS % (AUTO) 0.4 % (0-3); EOSINOPHILS % (AUTO) 2.4 % (0-5); MONOCYTES % (AUTO) 14.1 % (4-12); Mean Corpuscular Hemoglobin 30.7 pg (27.0-35.0); Mean Corpuscular Volume 93.6 fL (81-100); NEUTROPHILS % (AUTO) 64.3 % (40-74); Platelet Count 202 bil/L (150-400)
[2016-12-03] MEDS: MeTOProlol XL 50 mg ER24 Tablet PO SCH ×2 (09:06→20:00)
[2016-12-03] MEDS: Insulin GLARgine 100 Unit/mL Syringe SUBQ SCH ×2 (09:06→20:01)
[2016-12-03] MEDS: Insulin LISPRO 300 Unit/3 mL Inj SUBQ SCH ×4 (09:08→22:05)
--- NOTE | 2016-12-03 13:28 | PCM.PNMED ---
Subjective Date of Service Dec 03, 2016 Subjective Patient is sitting at the bedside and has no current complaints. Denies any shortness of breath or chest pain. Denies noting any palpitations. Exam Vital Signs Vital Sign - Last Date Time Temp Pulse Resp B/P Pulse Ox O2 Delivery O2 Flow Rate FiO2 12/03/16 12:22 36.7 59 16 145/79 95 Room Air Intake and Output 12/02/16 12/02/16 12/03/16 Cumulative From/Thru 15:00 23:00 07:00 11/30/16 19:23 - 12/03/16 06:42 Intake Total 0 ml 1236 ml 360 ml 3633 ml Output Total 1100 ml 65 ml 3290 ml Balance 0 ml 136 ml 295 ml 343 ml Intake Oral 1236 ml 360 ml 3126 ml IV Total 0 ml 507 ml Output Urine Total 1100 ml 65 ml 3290 ml # Voids 2 2 # Bowel Movements 1 1 Exam Constitutional: Elderly male in no acute distress Head: Normocephalic atraumatic Chest: Clear to auscultation Cor: Regular rate and rhythm S1-S2 Abdomen: Soft nontender bowel sounds present Extremities: No pedal edema Neuro: Alert and oriented 3, motor strength is intact bilaterally IVs and Medications Medications Reviewed: Medications were reviewed in detail Lab and Diagnostics Laboratory Tests 72 Hours Test 11/30/16 19:05 11/30/16 22:01 12/01/16 03:35 12/02/16 02:55 Urine Color Yellow (YELLOW) Urine Appearance Clear (CLEAR,HAZY) Urine pH 5.5 (5.0-8.0) Urine Specific Nikolai 1.020 (1.003-1.035) Urine Protein Negativemg/dL (NEG,TRACE) Urine Glucose (UA) Negativemg/dL (NEGATIVE) Urine Ketones Negativemg/dL (NEGATIVE) Urine Occult Blood Negative (NEGATIVE) Urine Nitrite Negative (NEGATIVE) Urine Bilirubin Negative (NEGATIVE) Urine Urobilinogen Normalmg/dL (NORMAL) Urine Leukocyte Esterase Negative (NEGATIVE) Urine RBC 0-2/hpf (0-2) Urine WBC 0-5/hpf (0-5) Urine Epithelial Cells None/hpf (NONE-MOD) Urine Crystals None seen (NONE SEEN) Urine Bacteria None/hpf (NONE-FEW) Urine Hyaline Casts None/lpf (NONE) Urine Granular Casts None seen (NONE SEEN) Urine Waxy Casts None seen (NONE SEEN) Urine Red Blood Cell Casts None seen (NONE SEEN) Urine White Blood Cell Casts None seen (NONE SEEN) Urine Mucus None seen (None Seen) Urine Trichomonas None seen (NONE SEEN) Urine Yeast None (NONE SEEN) Urinalysis Comment None Urine Culture Reflexed Not indicated Magnesium Level 1.8mg/dL (1.6-2.6) 1.9mg/dL (1.6-2.6) Troponin T 0.010ug/L (0.0-0.011) 0.010ug/L (0.0-0.011) Thyroid Stimulating Hormone (TSH) 1.720uIU/mL (0.450-4.500) Free Thyroxine 1.34ng/dL (0.82-1.77) White Blood Count 14.5th/mm3 (3.8-10.1) 14.1th/mm3 (3.8-10.1) Red Blood Count 4.47mil/mm3 (4.40-5.80) 4.58mil/mm3 (4.40-5.80) Hemoglobin 13.6g/dL (13.8-17.2) 14.0g/dL (13.8-17.2) Hematocrit 42.1% (41.0-50.0) 43.1% (41.0-50.0) Mean Corpuscular Volume 94.2fL (81-100) 94.1fL (81-100) Mean Corpuscular Hemoglobin 30.4pg (27.0-35.0) 30.6pg (27.0-35.0) Mean Corpuscular Hemoglobin Concent 32.3% (32.0-37.0) 32.5% (32.0-37.0) Red Cell Distribution Width 16.6% (12.3-15.4) 16.3% (12.3-15.4) Platelet Count 207bil/L (150-400) 194bil/L (150-400) Neutrophils (%) (Auto) 64.1% (40-74) 76% (40-74) Lymphocytes (%) (Auto) 20.7% (14-46) 20% (14-46) Monocytes (%) (Auto) 12.5% (4-12) 9% (4-12) Eosinophils (%) (Auto) 2.2% (0-5) 4% (0-5) Basophils (%) (Auto) 0.2% (0-3) 0% (0-3) Sodium Level 141mEq/L (134-144) 139mEq/L (134-144) Potassium Level 4.1mEq/L (3.5-5.2) 4.9mEq/L (3.5-5.2) Chloride Level 103mEq/L (97-108) 101mEq/L (97-108) Carbon Dioxide Level 27mmol/L (18-29) 27mmol/L (18-29) Blood Urea Nitrogen 21mg/dL (8-27) 19mg/dL (8-27) Creatinine 1.06mg/dL (0.76-1.27) 1.06mg/dL (0.76-1.27) Estimat Glomerular Filtration Rate 72mL/min (>59) 72mL/min (>59) Glucose Level 103mg/dL (60-99) 210mg/dL (60-99) Calcium Level 9.0mg/dL (8.5-10.1) 9.0mg/dL (8.5-10.1) Total Bilirubin 0.3mg/dL (0.0-1.2) 0.4mg/dL (0.0-1.2) Aspartate Amino Transf (AST/SGOT) 18U/L (0-50) 19U/L (0-50) Alanine Aminotransferase (ALT/SGPT) 22U/L (0-44) 20U/L (0-44) Alkaline Phosphatase 53U/L (25-160) 60U/L (25-160) Total Protein 6.4g/dL (6.4-8.4) 6.2g/dL (6.4-8.4) Albumin 3.8g/dL (3.4-5.0) 4.0g/dL (3.4-5.0) Triglycerides Level 68mg/dL (0-149) Cholesterol Level 130mg/dL (100-199) LDL Cholesterol, Calculated 57.400mg/dL (0-99) VLDL Cholesterol 13.600mg/dL HDL Cholesterol 59mg/dL (>39) Cholesterol/HDL Ratio 2.20 (0.0-4.4) Band Neutrophils % 3% (1-5) Hematology Comments Phosphorus Level 3.3mg/dL (2.5-4.9) Test 12/03/16 05:20 White Blood Count 12.7th/mm3 (3.8-10.1) Red Blood Count 4.53mil/mm3 (4.40-5.80) Hemoglobin 13.9g/dL (13.8-17.2) Hematocrit 42.4% (41.0-50.0) Mean Corpuscular Volume 93.6fL (81-100) Mean Corpuscular Hemoglobin 30.7pg (27.0-35.0) Mean Corpuscular Hemoglobin Concent 32.8% (32.0-37.0) Red Cell Distribution Width 16.0% (12.3-15.4) Platelet Count 202bil/L (150-400) Neutrophils (%) (Auto) 64.3% (40-74) Lymphocytes (%) (Auto) 18.6% (14-46) Monocytes (%) (Auto) 14.1% (4-12) Eosinophils (%) (Auto) 2.4% (0-5) Basophils (%) (Auto) 0.4% (0-3) Sodium Level 142mEq/L (134-144) Potassium Level 4.4mEq/L (3.5-5.2) Chloride Level 101mEq/L (97-108) Carbon Dioxide Level 30mmol/L (18-29) Blood Urea Nitrogen 21mg/dL (8-27) Creatinine 1.09mg/dL (0.76-1.27) Estimat Glomerular Filtration Rate 70mL/min (>59) Glucose Level 158mg/dL (60-99) Calcium Level 9.1mg/dL (8.5-10.1) Phosphorus Level 4.0mg/dL (2.5-4.9) Magnesium Level 2.0mg/dL (1.6-2.6) Total Bilirubin 0.6mg/dL (0.0-1.2) Aspartate Amino Transf (AST/SGOT) 20U/L (0-50) Alanine Aminotransferase (ALT/SGPT) 22U/L (0-44) Alkaline Phosphatase 61U/L (25-160) Total Protein 6.2g/dL (6.4-8.4) Albumin 4.1g/dL (3.4-5.0) Result Diagram: 12/03/16 0520 12/03/16 0520 X-Rays, CTs and MRIs Chest x-ray from [facility] 11/30/16: No acute pulmonary process. Cardiac Echo Impressions Interpretation Summary The left ventricle is mildly dilated. The ejection fraction is estimated to be 40-45%. There is akinesis and thinning of the basel 2/3rds of the inferior and posterior palacio and general hypokinesis otherwise. There is moderate mitral regurgitation. The right ventricular systolic pressure is estimated at 64 mmHg assuming a right atrial pressure of 15 mm Hg. The IVC is dilated (diameter is greater than 2.1 cm) and it collapses less than 50% with a sniff. This suggests a high right atrial pressure of 15 mm Hg. No other echocardiographic abnormalities seen. Compared with the prior exam from 12/29/2015, the LV function appears slightly weaker. I would have estimated the prior EF at 45-50 and the current EF at 40-45%. Compared with the prior exam, the MR appears slightly worse. Reading Physician:04:18 PM . 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 Per discussion with cardiology that patient will transitioned off his Amiodarone drip, have his device re- programmed to reduce threshold of activation, and undergo a pharmacological stress test tomorrow AM. 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, this occurred, secondary to ventricular tachycardia with HR 169. Patient had AICD placed in 2014 for sustained ventricular tachycardia. Per last cardiology report in [facility] in October, he has had 62 episodes of ventricular tachycardia in about 1 month. He was originally scheduled for cardiac ablation on 12/11/[address] Woodward. - Amiodarone drip per Dr. Kothari - Trop WN at [facility]. Repeat unremarkable - Monitor on Tele - CBC, CMP in AM - Heart Healthy diet - Per discussion with cardiology that patient will transitioned off his Amiodarone drip to PO on December 02, have his device re-programmed to reduce threshold of activation, and undergo a pharmacological stress test on December 03. Diabetes Mellitus, insulin dependent, s/p partial pancreatectomy, Present on Admission, Active Last A1c 6.9 per patient, 1.5 weeks ago. Typical regimen is Lantus 25 mg BID, Novolog sliding scale with meals and metformin. Insulin and metformin used to control. Please work with pt, as he has a tailored regimen for his unique situation of partial pancreatectomy. - Novolog High dose scale TID with meals - Lantus 20 units BID, Will given 10 units tonight as patient NPO after midnight - Hold Metformin - Low dose lispro sliding scale Hypertension, present on admission, active - Continue home Metoprolol Succinate 50 mg BID - We will increase furosemide to 40 mg by mouth daily per cardiology Hyperlipidemia, managed. - Continue Crestor 10 mg daily CAD s/p stent, 2000. - Continue home metoprolol, aspirin Disposition: Patient will undergo stress test tomorrow AM following reprograming of his device, anticipate 1-2 day until DC with needs to be determined. VTE Prophylaxis: Sub-Q Heparin (Unfractionated) VTE Mechanical Devices: Intermittant Pneumatic CD Resuscitation Status: CPR: Attempt Resuscitation Time spent 20 minutes Daly Fabian MD Dec 03, 2016 13:28
--- NOTE | 2016-12-03 16:30 | NUR ---
Stress test Pt has been A&O X3 all day. Answers questions appropriately. Pt has been NPO for stress test. Pt had all AM meds per instruction from nuclear medicine. Lungs are more clear than yesterday. Less complaint of SOB than yesterday. Ambulatory independently in the room with no issues. No c/o pain or discomfort. at the bedside. Pt left at 1430 with transport to go to stress test.
--- NOTE | 2016-12-03 19:05 | NUR ---
Return to unit Pt returned from stress test. Understands that he is to be NPO after midnight again tonight.
--- NOTE | 2016-12-03 19:38 | PROG NOTE ---
[address] [address] PROGRESS NOTE PATIENT: DARLEEN LIRIANO : 1935 MR#: [id number] ADMIT: 11/30/2016 JOB ID: [id number] DATE: 12/03/2016 CARDIOLOGY PROGRESS NOTE: SUBJECTIVE: The patient feels that his breathing has significantly improved after his diuresis with IV Lasix yesterday. He now feels that his breathing is back to baseline. He continues to deny any chest discomfort. He has ambulated without any difficulty. His telemetry has shown no concerning ventricular ectopy. He underwent his pharmacologic myocardial perfusion imaging today, which I have personally reviewed, and suggests a predominantly fixed proximal to mid inferior wall defect with some subtle reversibility in the distal inferior wall and inferolateral wall concerning for possible ischemia. PHYSICAL EXAMINATION: A comfortable-appearing elderly male in no distress. HR 62, BP 145/74, O2 saturation 94% on room air. He had a net diuresis of around a liter. His weight was not recorded this morning. Lungs: Clear bilaterally. CV: Regular rate and rhythm. No obvious JVD. No appreciable murmurs or gallops. Abdomen: Soft, nondistended, nontender. Extremities: Cool, with minimal edema. LABORATORY: White count was 12.7 and hematocrit of 42%. Sodium 142, with a potassium 4.4 and a BUN of 21, with a creatinine of 1.1. Glucose 158. Magnesium 2.0. IMPRESSION: 1. Recurrent ventricular tachycardia. He has had no further episodes since his loading with IV amiodarone. His device interrogation from yesterday showed that the device was programmed to five beats following conversion before reassessing for recurrent ventricular tachycardia and was reprogrammed to three beats to allow reinitiation of anti-tachy pacing rather than repeat ICD discharge. Because of his ischemia on his perfusion imaging study today, I have asked Dr. Goff to proceed with cardiac catheterization tomorrow to assess for any potential revascularization opportunity. If this appears to be stable, then I think he can be discharged tomorrow with followup with Dr. Woodward for his ablation procedure. 2. Moderate mitral regurgitation. His volume status appears to have improved with diuresis. I would continue with a higher dose of furosemide at 40 mg orally daily. 3. Hypertension. Borderline controlled. Before increasing his medication, will continue to follow this. 4. Diabetes. Per the hospitalist. PLAN: 1. Continue his current medications. 2. Pursue cardiac catheterization tomorrow with possible revascularization if indicated. 3. Anticipate discharge with catheterization ablation procedure of his ventricular tachycardia as scheduled on December 11, 2016.
--- NOTE | 2016-12-03 20:23 | DRSVH ---
Caution: Report not yet finalized and possibly incomplete! PROCEDURE: ONE DAY PHARMACOLOGICAL STRESS TEST. Rest and pharmacological stress myocardial perfusio n SPECT. Gated images were not acquired. RADIOPHARMACEUTICAL: 9 mCi of Tc-99m tetrofosmin IV at rest and 26.3 mCi of Tc-99m tetrofosmin IV at peak effect of pharmacological stress. [id number] was performed. INDICATIONS: VT. TECHNIQUE: Radiopharmaceutical was injected at peak stress test and also at rest. SPECT images were obtained. SPECT myocardial perfusion images were displayed in short axis, horizontal long axis, and vertical long axis views. Images were reviewed using Fleck software. COMPARISON: None. CARDIAC STRESS: A pharmacologic stress test was performed under the supervision of attending staff u sing an infusion of Lexiscan. Hemodynamic Data: There is normal blood pressure and heart rate response to pharmacologic stress. Symptoms: The patient denied anginal chest pain. Aminophylline: Not given. EKG: No diagnostic changes of ischemia, no ectopy. FINDINGS: Raw Data: There is good myocardial uptake of radiotracer. No significant motion artifacts. Left Ventricular Function: Gated images were unable to be obtained for functional assessment due to irregular heart rate. Myocardial Perfusion: A small inferoapical defect is noted partially reversible inferolateral defect is also noted. These would be consistent with ischemia. IMPRESSION: 1. Uneventful Lexiscan infusion. 2. Inferoapical reversible defect and partially reversible inferolateral defect that are suggestive of ischemia. 3. study was not done. Dictated by: Hang Goff M.D. on 12/03/2016 at 17:34 Transcribed by: CHETNA on 12/03/2016 at 23:23 Blanks in Myocardial Perfusion and IMPRESSION sections where dictation cuts out and is garbled, thank s!
[2016-12-04] VITALS (16 sets, daily range): BP systolic 114–144; BP diastolic 64–82; PULSE 59–66; RESP 16–22; O2SAT 94–97
[2016-12-04] MEDS: Heparin 5,000 Unit/mL Inj SUBQ SCH ×4 (00:14→23:55)
[2016-12-04 05:11] LABS: BASOPHILS % (AUTO) 0.3 % (0-3); EOSINOPHILS % (AUTO) 1.7 % (0-5); MONOCYTES % (AUTO) 16.7 % (4-12); Mean Corpuscular Hemoglobin 30.4 pg (27.0-35.0); Mean Corpuscular Volume 93.4 fL (81-100); NEUTROPHILS % (AUTO) 61.8 % (40-74); Platelet Count 201 bil/L (150-400)
[2016-12-04 05:39] LABS: Magnesium 2.1 mg/dL (1.6-2.6)
--- NOTE | 2016-12-04 06:30 | NUR ---
Blood Sugar At HS, blood sugar was 339 and 20 units of Lantus administered per MAR; paged for correctional dose with Humalog, since pt would be NPO after midnight. Per MD, reassess BG in approx. 2hrs and follow sliding scale at that time for Humalog dosing. On reassessment, BG was 305, so 7 units of Humalog were administered per MAR. VSS, tele A-paced 60s; pt denies pain throughout shift, NPO after midnight.
[2016-12-04] MEDS: Insulin LISPRO 300 Unit/3 mL Inj SUBQ SCH ×4 (08:00→20:45)
[2016-12-04] MEDS: Insulin GLARgine 100 Unit/mL Syringe SUBQ SCH ×2 (08:30→20:45)
[2016-12-04] MEDS: MeTOProlol XL 50 mg ER24 Tablet PO SCH ×2 (08:53→20:40)
[2016-12-04] MEDS ORDERED: diphenhydrAMINE 25 mg Capsule PO ONE (09:50)
[2016-12-04] MEDS: 0.9% Sodium Chloride 1,000 ML IV SCH (11:34)
--- NOTE | 2016-12-04 11:47 | PCM.PNMED ---
Subjective Date of Service Dec 04, 2016 Subjective Today the patient has no focal complaints, he is looking forward to getting his Cath done today and hopefully being able to get on with his life. There were no significant overnight events. Exam Vital Signs Vital Sign - Last Date Time Temp Pulse Resp B/P Pulse Ox O2 Delivery O2 Flow Rate FiO2 12/04/16 09:58 60 12/04/16 08:42 36.9 16 134/68 Room Air 12/04/16 03:19 94 Intake and Output 12/03/16 12/03/16 12/04/16 Cumulative From/Thru 15:00 23:00 07:00 11/30/16 19:23 - 12/04/16 01:15 Intake Total 400 ml 4033 ml Output Total 1200 ml 4490 ml Balance -800 ml -457 ml Intake Oral 400 ml 3526 ml IV Total 507 ml Output Urine Total 1200 ml 4490 ml # Voids 2 # Bowel Movements 1 2 Exam Gen: A/O x3 pleasant cooperative man in NAD Neck: Supple, non tender, JVD of 6-7 cm HEENT: PERRL, EOMI, no scleral icterus CV: RRR, no murmurs rubs or gallops, no tenderness to pacer site Resp: Lungs CTA BL no wheezing rales or rhonchi Abd: Soft, non tender, no rebound masses or guarding Extr: No clubbing cyanosis or edema Neuro: CN 2-12 grossly intact, no focal neurologic deficit Psych: Pleasant and appropriate mood and affect. . IVs and Medications Medications Reviewed: Medications were reviewed in detail Lab and Diagnostics Item Value Date Time Red Blood Count 4.57 mil/mm3 12/04/16427 Mean Corpuscular Volume 93.4 fL 12/04/16427 Mean Corpuscular Hemoglobin 30.4 pg 12/04/16427 Mean Corpuscular Hemoglobin Concent 32.6 % 12/04/16427 Red Cell Distribution Width 16.0 % H 12/04/16427 Neutrophils (%) (Auto) 61.8 % 12/04/16427 Lymphocytes (%) (Auto) 19.2 % 12/04/16427 Monocytes (%) (Auto) 16.7 % H 12/04/16427 Eosinophils (%) (Auto) 1.7 % 9/27/17 0428 Basophils (%) (Auto) 0.3 % 12/04/16427 Estimat Glomerular Filtration Rate 69 mL/min 12/04/16427 Calcium Level 9.3 mg/dL 12/04/16427 Magnesium Level 2.1 mg/dL 12/04/16427 Result Diagram: 12/04/1642712/04/16427 X-Rays, CTs and MRIs Chest x-ray from [facility] 11/30/16: No acute pulmonary process. Cardiac Echo Impressions Interpretation Summary The left ventricle is mildly dilated. The ejection fraction is estimated to be 40-45%. There is akinesis and thinning of the basel 2/3rds of the inferior and posterior palacio and general hypokinesis otherwise. There is moderate mitral regurgitation. The right ventricular systolic pressure is estimated at 64 mmHg assuming a right atrial pressure of 15 mm Hg. The IVC is dilated (diameter is greater than 2.1 cm) and it collapses less than 50% with a sniff. This suggests a high right atrial pressure of 15 mm Hg. No other echocardiographic abnormalities seen. Compared with the prior exam from 12/29/2015, the LV function appears slightly weaker. I would have estimated the prior EF at 45-50 and the current EF at 40-45%. Compared with the prior exam, the MR appears slightly worse. Reading Physician:04:18 PM . 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 Patient underwent Stress test with reversible lesion indicative of potentially correctible lesion, thus the patient will undergo catheterization today. 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, this occurred, secondary to ventricular tachycardia with HR 169. Patient had AICD placed in 2014 for sustained ventricular tachycardia. Per last cardiology report in [facility] in October, he has had 62 episodes of ventricular tachycardia in about 1 month. He was originally scheduled for cardiac ablation on 12/11/[address] Woodward. - Amiodarone transitioned to PO - Trop WNL at [facility]. Repeat unremarkable - Monitor on Tele - CBC, CMP in AM - Heart Healthy diet - Patient underwent stress test yesterday with apparent reversible defect, will undergo cath today. Diabetes Mellitus, insulin dependent, s/p partial pancreatectomy, Present on Admission, Active Last A1c 6.9 per patient, 1.5 weeks ago. Typical regimen is Lantus 25 mg BID, Novolog sliding scale with meals and metformin. Insulin and metformin used to control. Please work with pt, as he has a tailored regimen for his unique situation of partial pancreatectomy. - Novolog High dose scale TID with meals - Lantus 20 units BID, Will given 10 units tonight as patient NPO after midnight - Hold Metformin - Low dose lispro sliding scale Hypertension, present on admission, active - Continue home Metoprolol Succinate 50 mg BID - We will increase furosemide to 40 mg by mouth daily per cardiology Hyperlipidemia, managed. - Continue Crestor 10 mg daily CAD s/p stent, 2000. - Continue home metoprolol, aspirin Disposition: The patient will undergo Catheterization today with potential for DC tomorrow home should the procedure be uncomplicated. Pain Evaluation: Adequate Pain Control VTE Prophylaxis: Sub-Q Heparin (Unfractionated) VTE Mechanical Devices: Intermittant Pneumatic CD Resuscitation Status: CPR: Attempt Resuscitation Time spent 20 minutes Attending Statement Patient has been seen and examined by myself with director medical affairs and agree with above history, physical, assessment and plan. Karri Perez DO Dec 04, 2016 11:47 Daly Fabian MD Dec 04, 2016 13:25
[2016-12-04] MEDS ORDERED: Heparin 1,000 Units/500 mL NS Premix IV ONE (12:10)
[2016-12-04] MEDS ORDERED: Heparin 10,000 Unit/1,000 mL NS Premix IV ONE (12:10)
[2016-12-04] MEDS ORDERED: fentaNYL-PF 50 mCg/mL 2 mL Inj ONE (12:13)
[2016-12-04] MEDS ORDERED: Nitroglycerin 50,000 mcg/250 mL D5W Premix IV ONE (12:13)
[2016-12-04] MEDS ORDERED: Heparin 1,000 Unit/mL 10 mL Inj ONE (12:13)
--- NOTE | 2016-12-04 13:51 | DI95 ---
[address] [address] INTERVENTIONAL CARDIAC CATHETERIZATION PATIENT: DARLEEN LIRIANO : 1935 MR#: [id number] ADMIT: 11/30/2016 JOB ID: [id number] DATE OF SERVICE: 12/04/2016 PROCEDURE: Selective right and left coronary angiography, left heart catheterization, left ventriculogram, percutaneous intervention of the right coronary artery. INDICATION: VT, abnormal stress test. ANGIOGRAPHIC FINDINGS: 1. Calcification of the coronaries is noted on fluoroscopy. 2. Left main distal 30% to 40% lesion. 3. LAD is a moderate caliber transapical vessel. It has mild diffuse disease of 20% to 30% in its entirety. No critical discrete stenosis is noted. The diagonals are diffusely diseased. 4. Circumflex nondominant. No critical disease. 5. Right coronary artery is a dominant vessel. It is diffusely diseased. It has a stent in its mid segment. The stent is widely patent. The proximal to mid segment has long tubular disease of 30% to 40%. Distally prior to the crux, there is a moderately long area of stenosis which is about 70% to 80% in severity. The distal PDA is a small caliber vessel and is diffusely diseased as well. 6. Left heart catheterization revealed an LVEDP of 15. There was no gradient upon pullback and hand injections suggested severe LV dysfunction. INTERVENTIONAL REPORT: Given his history of V-tach as well as inferior ischemia, we decided to intervene on this distal RCA. We used a 7-Croat[place] guide and made side holes in it because of damping of the pressure every time the guide was engaged in the ostium. A Runthrough wire was placed in the distal RCA. The lesion was pre-dilated with a 2.0 balloon and then stented with a 2.25 x 26 mm Medtronic Omni stent delivered at 12 atmospheres with excellent angiographic results. During stent deployment, the patient did have a run of VT which was self terminating. In summary, successful drug-eluting stent placed in the distal RCA across the posterolateral branch with no side branch compromise. The patient is advised to stay on dual antiplatelet therapy for at least six months post procedure.
--- NOTE | 2016-12-04 15:53 | NUR ---
took over patient care from SHAUN Williamsonloli Vilchis 1550 Addendum: 12/04/16 at 1726 by BEATRIZ MEZA CNA transferred patient care back to 172
--- NOTE | 2016-12-04 16:03 | NUR ---
Recovery completed in [facility] post RCA stent today by Dr. Turner. Star closure with scant track ooze - no hematoma, and no pain with palpation. Phone and bedside report given to RN for room 2004. Heart Rhythm atrial paced - rate 60.
--- NOTE | 2016-12-04 18:02 | NUR ---
Cardiac Catheter Lab 0824 - Called the sugar laboratory assistant and spoke to Mor about his tentative procedure time. He was not sure, but thought it would likely be about 1000 or 1100. 0930 - Discussed his care with Dr. Fabian, Dr. Perez, and the rest of the multidisciplinary care team during morning rounds. Mentioned to the MDs that the patient had requested Novolog instead of the Lispro he had been receiving during his hospital stay as he felt it worked better at maintaining his blood glucose levels. This information was acknowledged. 1200 - He left for the sugar laboratory assistant at this time. Was given his pre-operative medications, consent signed, two patent IVs present. Called report to [facility] shortly after. 1519 - Latonya MARSHALL from the [facility] called and gave report. She said he had a stent placed, a right starclose groin site (clean, dry, and intact), 2 hours of bedrest had been completed, had eaten lunch, palpable pedal pulses, Normal Saline @ 100 for 4 hours which would end about 1700, A-paced 60s cardiac rhythm, and room air. 1545 - He arrived from [facility] back to 2004 and was settled into his room. His right groin site was clean, dry, and intact with minimal sanguineous drainage. No signs of a hematoma. No complaints of pain. He got up with stand by assistance about an hour later and was able to walk steadily. No bleeding noted. Care continues.
[2016-12-04] MEDS ORDERED: Ondansetron 2 mg/mL 2 mL Inj IVPUSH PRN (19:35)
[2016-12-04] MEDS ORDERED: Atropine 1 mg/10 mL (Code) Syringe IVPUSH PRN (20:15)
[2016-12-04] MEDS ORDERED: 0.9% Sodium Chloride 250 ML BOLUS IV PRN (20:15)
[2016-12-04] MEDS ORDERED: 0.9% Sodium Chloride 400 ML (4 HRS) IV ONE (20:15)
[2016-12-04] MEDS ORDERED: Sodium Chloride LOK Flush 10 mL Syringe IVFLUSH PRN (20:15)
[2016-12-05] MEDS: 0.9% Sodium Chloride 1,000 ML IV SCH (02:30)
[2016-12-05 02:36] LABS: BASOPHILS % (AUTO) 0.4 % (0-3); EOSINOPHILS % (AUTO) 1.4 % (0-5); MONOCYTES % (AUTO) 14.7 % (4-12); Mean Corpuscular Hemoglobin 30.2 pg (27.0-35.0); Mean Corpuscular Volume 93.2 fL (81-100); NEUTROPHILS % (AUTO) 62.1 % (40-74); Platelet Count 195 bil/L (150-400)
[2016-12-05 02:53] LABS: INR 0.94 ratio
[2016-12-05 03:02] LABS: Magnesium 2.1 mg/dL (1.6-2.6); Phosphorus 3.5 mg/dL (2.5-4.9)
--- NOTE | 2016-12-05 03:52 | NUR ---
Groin site Pt right groin site soft non tender with no hematoma noted. Pt has starclose placed and site was oozing. Changed dressing x2 and applied 5lbs weigh to site for 2hours. At reassessment no oozing noted. No c/o of CP, SOB. VSS and Tele Apaced 60's.
[2016-12-05 04:24] VITALS: BP 132/67; PULSE 60; RESP 16; O2SAT 94
[2016-12-05 05:46] VITALS: PULSE 60
[2016-12-05 08:00] VITALS: PULSE 65
[2016-12-05] MEDS: Insulin LISPRO 300 Unit/3 mL Inj SUBQ SCH ×2 (08:00→12:01)
[2016-12-05 08:04] VITALS: BP 117/72; PULSE 62; RESP 22; O2SAT 93
[2016-12-05] MEDS: Heparin 5,000 Unit/mL Inj SUBQ SCH (08:22)
[2016-12-05] MEDS: MeTOProlol XL 50 mg ER24 Tablet PO SCH (08:23)
[2016-12-05] MEDS: Insulin GLARgine 100 Unit/mL Syringe SUBQ SCH (09:22)
[2016-12-05] MEDS ORDERED: METO-369 PO (10:24)
[2016-12-05] MEDS ORDERED: CLOP75TA28 PO (10:24)
[2016-12-05] MEDS ORDERED: FUR20 PO (10:36)
--- NOTE | 2016-12-05 10:41 | PCM.DIMED ---
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 Coronary artery disease . Medication Instructions Additional med instructions We have added 2 medications and increased the dose of another: Plavix, this is a blood thinning medication that works with your Aspirin to help prevent further blood clots in your heart Metoprolol, this is medication that ensures that your heart does not beat too fast, this will reduce the stress on your heart . Test Results Test Results You underwent cardiac catheterization, you received a drug eluding stent to your right coronary artery. Diet Discharge Diet: Heart Healthy Activity Discharge Activity: Limited until seen by PCP (No lifting more than 10 pounds until cleared to do so by your primary care provider) Call your provider Call your provider for: Fever or Chills, Shortness of breath, Bleeding, Chest pain, Vomitting, Excessive diarrhea, Weakness (unilateral), Other (Any new or concerning symptoms) Patient Instructions Patient Instructions You have been scheduled to have a cardiac ablation procedure with Dr. Woodward on Dec 11, please follow up with him at that time. Follow-up plan Please follow up with your primary care provider within 3 weeks, it may be best to defer the appointment until after you have had your procedure. Follow-up Provider: Sergio Colon MD Follow-up with PCP in: 3 weeks Karri Perez DO Dec 05, 2016 10:41
--- NOTE | 2016-12-05 11:40 | NUR ---
Social Work: Discharge/Multidisciplinary Rounds D: Patient discussed in multidisciplinary rounds; the patient is medically stable for discharge home. Capacity for self-care addressed. No concerns or discharge needs identified. BOILER TUBE REAMER met with the patient at bedside to reassess and confirm discharge plan. Patient states that he lives in [place] with his . He intends to discharge home and has been ambulating I during admission without DME. patient and BOILER TUBE REAMER identify no sw needs or concerns. Pt's will transport. A: Pt who is I at baseline. P: Pt to discharge home via POV and no identified sw needs. PHANI Daniel
[2016-12-05 12:23] VITALS: BP 138/77; PULSE 68; RESP 20; O2SAT 93
--- NOTE | 2016-12-05 15:22 | NUR ---
Discharge Pt discharged to home today with family at ~1510. Pt given discharge educational materials on new prescriptions and angioplasty/stents booklet. Pt's IV access D/C'd and intact. Pt's groin site stable. Pt given post-cardiac cath groin site care information. Pt instructed to f/u with PCP as listed in discharge instructions. Pt verbalized understanding of all discharge instructions. All belongings accompanied Pt at time of discharge.
--- NOTE | 2016-12-05 16:20 | PCM.DC.MED ---
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 Coronary artery disease . Consultations Cardiology Procedures XRay, CTs & MRIs Chest x-ray from [facility] 11/30/16: No acute pulmonary process. Cardiac Echo Impression Interpretation Summary The left ventricle is mildly dilated. The ejection fraction is estimated to be 40-45%. There is akinesis and thinning of the basel 2/3rds of the inferior and posterior palacio and general hypokinesis otherwise. There is moderate mitral regurgitation. The right ventricular systolic pressure is estimated at 64 mmHg assuming a right atrial pressure of 15 mm Hg. The IVC is dilated (diameter is greater than 2.1 cm) and it collapses less than 50% with a sniff. This suggests a high right atrial pressure of 15 mm Hg. No other echocardiographic abnormalities seen. Compared with the prior exam from 12/29/2015, the LV function appears slightly weaker. I would have estimated the prior EF at 45-50 and the current EF at 40-45%. Compared with the prior exam, the MR appears slightly worse. Reading Physician:04:18 PM . Invasive Procedures Cardiac catheterization on 12/04/16 INTERVENTIONAL REPORT: Given his history of V-tach as well as inferior ischemia, we decided to intervene on this distal RCA. We used a 7-Welsh guide and made side holes in it because of damping of the pressure every time the guide was engaged in the ostium. A Runthrough wire was placed in the distal RCA. The lesion was pre-dilated with a 2.0 balloon and then stented with a 2.25 x 26 mm Medtronic Omni stent delivered at 12 atmospheres with excellent angiographic results. During stent deployment, the patient did have a run of VT which was self terminating. In summary, successful drug-eluting stent placed in the distal RCA across the posterolateral branch with no side branch compromise. The patient is advised to stay on dual antiplatelet therapy for at least six months post procedure. Hang Goff MD 12/04/16 1303 . Brief History Taken from History and Physical composed by Dr. 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 His AICD discharged 4 times, each about 15 seconds apart around 12:45 PM while doing yard work. He stopped doing yardwork and defibrillator has not fired since. He notes only uncomfortability from the jolt of the AICD. The last time his AICD discharged was over a year ago. He was asymptomatic prior to it going off without any chest pain, palpitations, dizziness, headache, shortness of breath. He also denies fevers, chills, nausea, vomiting, abdominal pain, diarrhea. He does note he is scheduled for a cardiac ablation for ventricular tachycardia on 12/11/[address] Woodward. Per report from [facility], His AICD was interrogated by [facility] which showed total episodes of slow V. tach and multiple episodes of pacing which converted him however on his final occurrences rate went above 169 which required for defibrillation to between 30 and 36J for successful cardioversion. This was discussed with Dr. Kothari who recommended amiodarone drip and transfer to [facility]. Labs from [facility]: WBC 11.1, Hgb 14.7, HCT 45.3, platelets 200, Sodium 145, potassium 4.7, chloride 106, CO2 23, BUN 22, creatinine 1.3, glucose 185, calcium 9.5, magnesium 1.8, AST 29, ALT 48 , alkaline phosphatase 58, total CK 69, troponin I 0.012, , amylase 87, lipase 35, PT 10.9, INR 1.0, APTT 27. Chest X-ray with no acute pulmonary process. Rhythm strip from [facility] shows multiform PVCs with a pulse of 53. Urine dip without ketones, nitrites or leukocytes. . 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 Patient underwent Stress test with reversible lesion indicative of potentially correctible lesion, thus the patient underwent cardiac catheterization with a drug eluding stent placed in the RCA per Dr. Goff. He is discharged with a plan to return on 12/11 for ablation procedure with Dr. Woodward. 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 Interrogation, this occurred, secondary to ventricular tachycardia with HR 169. Patient had AICD placed in 2014 for sustained ventricular tachycardia. Per last cardiology report in [facility] in October, he has had 62 episodes of ventricular tachycardia in about 1 month. He was originally scheduled for cardiac ablation on 12/11/[address] Woodward. - Amiodarone transitioned to PO - Trop WNL at [facility]. Repeat unremarkable - Monitor on Tele - CBC, CMP in AM - Heart Healthy diet Diabetes Mellitus, insulin dependent, s/p partial pancreatectomy, Present on Admission, Active Last A1c 6.9 per patient, 1.5 weeks ago. Typical regimen is Lantus 25 mg BID, Novolog sliding scale with meals and metformin. Insulin and metformin used to control. Please work with pt, as he has a tailored regimen for his unique situation of partial pancreatectomy. - Novolog High dose scale TID with meals - Lantus 20 units BID, Will given 10 units tonight as patient NPO after midnight - Hold Metformin - Low dose lispro sliding scale Hypertension, present on admission, active - Continue home Metoprolol Succinate 50 mg BID - We will increase furosemide to 40 mg by mouth daily per cardiology Hyperlipidemia, managed. - Continue Crestor 10 mg daily CAD s/p stent, 2000. - Continue home metoprolol, aspirin - Added Plavix - Patient underwent stress test with apparent reversible defect, subsequently underwent cath with drug eluding stent to the RCA . Exam Vital Signs (Last) Date Time Temp Pulse Resp B/P Pulse Ox O2 Delivery O2 Flow Rate FiO2 12/05/16 12:23 36.6 68 20 138/77 93 Room Air Exam Gen: A/O x3 pleasant cooperative man in NAD Neck: Supple, non tender, JVD of 6-7 cm HEENT: PERRL, EOMI, no scleral icterus CV: RRR, no murmurs rubs or gallops, no tenderness to pacer site Resp: Lungs CTA BL no wheezing rales or rhonchi Abd: Soft, non tender, no rebound masses or guarding Extr: No clubbing cyanosis or edema Neuro: CN 2-12 grossly intact, no focal neurologic deficit Psych: Pleasant and appropriate mood and affect. . Test 11/30/16 19:05 11/30/16 22:01 12/01/16 03:35 12/02/16 02:55 Urine Color Yellow (YELLOW) Urine Appearance Clear (CLEAR,HAZY) Urine pH 5.5 (5.0-8.0) Urine Specific [place] 1.020 (1.003-1.035) Urine Protein Negativemg/dL (NEG,TRACE) Urine Glucose (UA) Negativemg/dL (NEGATIVE) Urine Ketones Negativemg/dL (NEGATIVE) Urine Occult Blood Negative (NEGATIVE) Urine Nitrite Negative (NEGATIVE) Urine Bilirubin Negative (NEGATIVE) Urine Urobilinogen Normalmg/dL (NORMAL) Urine Leukocyte Esterase Negative (NEGATIVE) Urine RBC 0-2/hpf (0-2) Urine WBC 0-5/hpf (0-5) Urine Epithelial Cells None/hpf (NONE-MOD) Urine Crystals None seen (NONE SEEN) Urine Bacteria None/hpf (NONE-FEW) Urine Hyaline Casts None/lpf (NONE) Urine Granular Casts None seen (NONE SEEN) Urine Waxy Casts None seen (NONE SEEN) Urine Red Blood Cell Casts None seen (NONE SEEN) Urine White Blood Cell Casts None seen (NONE SEEN) Urine Mucus None seen (None Seen) Urine Trichomonas None seen (NONE SEEN) Urine Yeast None (NONE SEEN) Urinalysis Comment None Urine Culture Reflexed Not indicated Thyroid Stimulating Hormone (TSH) 1.720uIU/mL (0.450-4.500) Free Thyroxine 1.34ng/dL (0.82-1.77) Triglycerides Level 68mg/dL (0-149) Cholesterol Level 130mg/dL (100-199) LDL Cholesterol, Calculated 57.400mg/dL (0-99) VLDL Cholesterol 13.600mg/dL HDL Cholesterol 59mg/dL (>39) Cholesterol/HDL Ratio 2.20 (0.0-4.4) Band Neutrophils % 3% (1-5) Hematology Comments Troponin T 0.010ug/L (0.0-0.011) Test 12/03/16 05:20 12/05/16 02:20 Total Bilirubin 0.6mg/dL (0.0-1.2) Aspartate Amino Transf (AST/SGOT) 20U/L (0-50) Alanine Aminotransferase (ALT/SGPT) 22U/L (0-44) Alkaline Phosphatase 61U/L (25-160) Total Protein 6.2g/dL (6.4-8.4) Albumin 4.1g/dL (3.4-5.0) White Blood Count 13.2th/mm3 (3.8-10.1) Red Blood Count 4.57mil/mm3 (4.40-5.80) Hemoglobin 13.8g/dL (13.8-17.2) Hematocrit 42.6% (41.0-50.0) Mean Corpuscular Volume 93.2fL (81-100) Mean Corpuscular Hemoglobin 30.2pg (27.0-35.0) Mean Corpuscular Hemoglobin Concent 32.4% (32.0-37.0) Red Cell Distribution Width 16.0% (12.3-15.4) Platelet Count 195bil/L (150-400) Neutrophils (%) (Auto) 62.1% (40-74) Lymphocytes (%) (Auto) 21.2% (14-46) Monocytes (%) (Auto) 14.7% (4-12) Eosinophils (%) (Auto) 1.4% (0-5) Basophils (%) (Auto) 0.4% (0-3) Prothrombin Time 10.0sec (8.1-12.5) Prothromb Time International Ratio 0.94ratio Sodium Level 135mEq/L (134-144) Potassium Level 4.0mEq/L (3.5-5.2) Chloride Level 97mEq/L (97-108) Carbon Dioxide Level 28mmol/L (18-29) Blood Urea Nitrogen 19mg/dL (8-27) Creatinine 1.05mg/dL (0.76-1.27) Estimat Glomerular Filtration Rate 73mL/min (>59) Glucose Level 117mg/dL (60-99) Calcium Level 9.0mg/dL (8.5-10.1) Phosphorus Level 3.5mg/dL (2.5-4.9) Magnesium Level 2.1mg/dL (1.6-2.6) Discharge Medications Discharge Medications Aspirin (Aspirin) 81 Mg Tabec 81 MG PO DAILY Prescribed by: JOSH DUMONT DO Clopidogrel (Clopidogrel) 75 Mg Tablet 75 MG PO DAILY Prescribed by: BENNY WILSON DO Docusate Sodium (Colace) 100 Mg Capsule 100 MG PO BID (Reported) Furosemide (Furosemide) 20 Mg Tab 20 MG PO DAILY Prescribed by: BENNY WILSON DO Insulin Aspart (NovoLOG U100 Insulin Vial) 100 Unit/Ml Mdv 1 UNIT SUBQ QID ( Reported) Insulin Glargine (Lantus U100 Insulin Vial) 100 Unit/Ml Vial 30 UNIT SUBQ BID ( Reported) Lisinopril (Lisinopril) 40 Mg Tablet 40 MG PO BID (Reported) Metformin (Metformin) 500 Mg Tablet 500 MG PO BID (Reported) Metoprolol Succinate ER (Metoprolol Succinate ER) 50 Mg Tab.er.24h 50 MG PO BID Prescribed by: BENNY WILSON DO Rosuvastatin Calcium (Crestor) 10 Mg Tablet 10 MG PO HS (Reported) Rutin/Hesp/Bioflav/C/Herb#196 (Bioflex Tablet) 1 Each Tablet 1 EACH PO BID ( Reported) Ubidecarenone (Co Q-10) 100 Mg Capsule 100 MG PO DAILY (Reported) Additional med instructions We have added 2 medications and increased the dose of another: Plavix, this is a blood thinning medication that works with your Aspirin to help prevent further blood clots in your heart Metoprolol, this is medication that ensures that your heart does not beat too fast, this will reduce the stress on your heart . Followup Plan Disposition: Home Follow-up plan Please follow up with your primary care provider within 3 weeks, it may be best to defer the appointment until after you have had your procedure. Discharge Diet: Heart Healthy Discharge Activity: Limited until seen by PCP (No lifting more than 10 pounds until cleared to do so by your primary care provider) Patient Instructions You have been scheduled to have a cardiac ablation procedure with Dr. Woodward on Dec 11, please follow up with him at that time. Follow-up Provider: Sergio Colon MD Follow-up with PCP in: 3 weeks Time spent Time spent planning and coordinating discharge greater than 35 minutes. Attending Statement Patient has been seen and examined by myself with medical lab scientist and agree with above history, physical, assessment and plan. copies to: Sergio Colon MD, David E DO Dec 05, 2016 16:20 Daly Fabian MD Dec 06, 2016 06:51
== END 2016-12-05 15:15 | disposition home or self-care (01) | DRG 247 ==
LOC: PCC 18:43
PROVIDERS: ADMIT Hospitalist; ATTEND Hospitalist
PROC: 027034Z Dilation of Coronary Artery, One Artery with Drug-eluting Intraluminal Device, Percutaneous Approach (ICD-10-PCS; principal; 2016-12-04)
PROC: 4A023N7 Measurement of Cardiac Sampling and Pressure, Left Heart, Percutaneous Approach (ICD-10-PCS; 2016-12-04)
PROC: B2111ZZ Fluoroscopy of Multiple Coronary Arteries using Low Osmolar Contrast (ICD-10-PCS; 2016-12-04)
PROC: B2151ZZ Fluoroscopy of Left Heart using Low Osmolar Contrast (ICD-10-PCS; 2016-12-04)
DX: I47.2 Ventricular tachycardia (principal); I50.22 Chronic systolic (congestive) heart failure; Z95.810 Presence of automatic (implantable) cardiac defibrillator; I25.10 Atherosclerotic heart disease of native coronary artery without angina pectoris; Z95.5 Presence of coronary angioplasty implant and graft; E13.9 Other specified diabetes mellitus without complications; Z87.891 Personal history of nicotine dependence; Z79.4 Long term (current) use of insulin; I10 Essential (primary) hypertension; E78.5 Hyperlipidemia, unspecified; I34.0 Nonrheumatic mitral (valve) insufficiency